=== PATIENT | female | born 1950 | race Caucasian/White ===

== ENCOUNTER → 2018-03-09 | Outpatient (CLI) | payer MEDICARE ==
--- NOTE | 2018-03-09 16:14 | WOMENS IMAGING REPORT ---
EXAM DESCRIPTION: 3D SCREENING MAMMO BILAT COMPLETED DATE/TIME: 03/09/2018 10:53 am REASON FOR STUDY: SCREENING MAMMO Z12.31 ENCNTR SCREEN MAMMOGRAM FOR MALIGNANT NEOPLASM OF NAIF COMPARISON: None. TECHNIQUE: Standard craniocaudal and mediolateral oblique views of each breast recorded using digita l acquisition and breast tomosynthesis. LIMITATIONS: None. FINDINGS: No masses, calcifications or architectural distortion. No areas of suspicion. Read with the assistance of CAD. .[facility] - R2 Cenova Version 1.3 .[facility] - R2 Cenova Version 1.3 .[facility] - R2 Cenova Version 2.4 .[facility] [place] R2 Cenova Version 2.4 .[facility] - R2 [employer] Make[employer] Artist Version 9.2 IMPRESSION: NORMAL MAMMOGRAM. BIRADS 1. BREAST DENSITY: a. The breasts are almost entirely fatty. BIRAD: 1 NEGATIVE RECOMMENDATION: ROUTINE SCREENING COMMENT: The patient has been notified of the results by letter per MQSA requirements. Additional no tification policies are in place for contacting patient with suspicious or incomplete findings. Quality ID #[id number]: The [employer] recommends an annual screening mammogram for women aged 40 years or over. This facility utilizes a reminder system to ensure that all patients receive reminder letters, and/or direct phone calls for appointments. This includes reminders for routine scr eening mammograms, diagnostic mammograms, or other Breast Imaging Interventions when appropriate. Th is patient will be placed in the appropriate reminder system. The [employer] (ACR) has developed recommendations for screening MRI of the breast s in certain patient populations, to be used in conjunction with mammography. Breast MRI surveillanc e may be appropriate for women with more than 20% lifetime risk of developing breast cancer as deter mined by genetic testing, significant family history of the disease, or history of mantle radiation f or Hodgkins Disease. ACR Practice Guidelines 2008. DBT Technology DBT is a type of tomographic mammography. With conventional mammography, overlapping breast tissue ma y make lesions difficult to detect, even with good compression. DBT uses an x-ray tube that rotates a round the breast, taking images at different angles. These images are then combined to create thin sl ices of the breast that the radiologist can view as a 3D reconstruction. The DEMANDIT unit can perform full-field digital mammograms (2D imaging); or DBT (3D imaging); or both, in a combination mode that quickly performs both the mammogram and the tomosynthesis scan while the breast is still compressed. PQRS 6045F: Fluoroscopic imaging is not utilized for breast tomosynthesis. TECHNICAL DOCUMENTATION: FINDING NUMBER: (1) ASSESSMENT: (1) JOB ID: [id number] [employer]- All Rights Reserved Reading location - IP/workstation name: [email or web address]
== END ==
LOC: WI 09:29
PROVIDERS: ATTEND Physician Assistant
DX: Z12.31 Encounter for screening mammogram for malignant neoplasm of breast (principal)
CPT/HCPCS: 77063; 77067

== ENCOUNTER 2018-05-26 23:32 | Emergency (ER) | payer MEDICARE, OTHER ==
[2018-05-26 23:51] VITALS: BP 122/54
[2018-05-27] MEDS ORDERED: METOCLOPRAMIDE HCL INJ/PF 10 MG/2 ML SDV IV ONE (00:10)
[2018-05-27] MEDS ORDERED: NORMAL SALINE 500 ML IV ONE (00:10)
[2018-05-27] MEDS ORDERED: HYDROMORPHONE HCL INJ/PF 2 MG/ML AMPULE IV ONE (00:10)
[2018-05-27 00:40] LABS: ABSOLUTE BASOPHILS # (AUTO) 0.1 10^3/uL (0.0-0.2); ABSOLUTE EOSINOPHILS # (AUTO) 0.1 10^3/uL (0.0-0.6); ABSOLUTE LYMPHOCYTES (AUTO) 2.4 10^3/uL (0.5-4.7); ABSOLUTE MONOCYTES (AUTO) 0.8 10^3/uL (0.1-1.4); ABSOLUTE NEUT (AUTO) 10.6 10^3/uL (1.7-8.2); BASOPHILS % (AUTO) 0.6 % (0-2); HEMATOCRIT 39.8 % (36.0-47.0); HEMOGLOBIN 13.1 g/dL (12.0-15.5); LYMPHOCYTES % (AUTO) 16.9 % (13-45); MEAN CORPUSCULAR HEMOGLOBIN 30.2 pg (27.0-33.4); MEAN CORPUSCULAR VOLUME 92 fl (80-97); MONOCYTES % (AUTO) 5.8 % (3-13); PLATELET COUNT 378 10^3/uL (150-450); RED BLOOD COUNT 4.34 10^6/uL (3.72-5.28); RED CELL DISTRIBUTION WIDTH 13.5 % (11.5-14.0); SEGMENTED NEUTROPHILS % (AUTO) 75.7 % (42-78); TOTAL CELLS COUNTED % (AUTO) 100 %; WHITE BLOOD COUNT 13.9 10^3/uL (4.0-10.5)
[2018-05-27 00:49] LABS: ANION GAP 11 (5-19); BLOOD UREA NITROGEN 20 mg/dL (7-20); CALCIUM 9.3 mg/dL (8.4-10.2); CARBON DIOXIDE 32 mmol/L (22-30); CHLORIDE 101 mmol/L (98-107); GLUCOSE 157 mg/dL (75-110); POTASSIUM 3.9 mmol/L (3.6-5.0); SODIUM 144.3 mmol/L (137-145)
[2018-05-27 02:17] LABS: APPEARANCE,URINE CLEAR; BILIRUBIN,URINE NEGATIVE (NEGATIVE); COLOR,URINE YELLOW; GLUCOSE, URINE NEGATIVE (NEGATIVE); KETONES,URINE NEGATIVE (NEGATIVE); LEUKOCYTE ESTERASE,URINE NEGATIVE (NEGATIVE); NITRITE,URINE NEGATIVE (NEGATIVE); PROTEIN,URINE 30 mg/dL (NEGATIVE); URINE SPECIFIC GRAVITY 1.023
--- NOTE | 2018-05-27 03:18 | RADIOLOGY REPORT (SQ) ---
EXAM DESCRIPTION: CT ABDOMEN WITHOUT IV CONTRAST COMPLETED DATE/TME: 05/27/2018 02:45 CLINICAL HISTORY: 68 years Female, left flank pain Comparison: None. Technique: No contrast. Coronal and sagittal reformat. This exam was performed according to our departmental dose-optimization program, which includes automated exposure control, adjustment of the mA and/or kV according to patient size and/or use of iterative reconstruction technique.[facility]: Dose Right [facility]: CareDose [facility]: Dose Right [facility]: Teradose 4D [facility]: Arista Power LIMITATIONS: None Findings: Cholecystectomy clips. 0.3 cm left distal ureteral stone at the L4-L5 disc level, mild left hydronephrosis/hydroureter, normal appendix. Moderate vacuum disc desiccation includes moderate bulge at the L4-L5 level, 0.3 cm degenerative L2 retrolisthesis, diffuse skeletal demineralization, and moderate bilateral sacroiliac osteoarthritis. Unenhanced lower thorax, abdominopelvic structures, and musculoskeleton appear otherwise grossly unremarkable. Impression: 0.3 cm left distal ureteral stone with low-grade obstruction.
[2018-05-27] MEDS ORDERED: KETOROLAC TROMETHAMINE INJ/PF 30 MG/1 ML SDV IV ONE (03:42)
[2018-05-27] MEDS ORDERED: HYDROCODONE/ACETAMINOPHEN 5-325 MG (6 TAB/ER DISP) PO PRN (04:33)
[2018-05-27] MEDS ORDERED: ONDANSETRON ODT 4 MG TAB (6 TAB/ER DISP) PO PRN (04:33)
--- NOTE | 2018-05-27 04:36 | ER Document Report ---
ED General - General Chief Complaint: Urinary Retention Stated Complaint: VOMITING Time Seen by Provider: 05/27/18 00:03 Notes: She is a 68-year-old female presents with complaint of left back pain rating around left flank and left lower quadrant abdomen. She says the pain started a few days ago. Then went away for 2 days and return tonight severe. She did see her doctor and had a CT scan but she never got the results of the CT scan. She denies any fevers. She started having vomiting today. No dysuria. No other complaints at this time. No previous history of kidney stones. TRAVEL OUTSIDE OF THE [place] IN LAST 30 DAYS: No - Related Data Allergies/Adverse Reactions: No Known Allergies Allergy (Unverified 05/26/18 23:36) Past Medical History - Social History Smoking Status: Unknown if Ever Smoked Frequency of alcohol use: None Drug Abuse: None Family History: Reviewed & Not Pertinent Patient has suicidal ideation: No Patient has homicidal ideation: No Renal/ Medical History: Denies: Hx Peritoneal Dialysis Review of Systems - Review of Systems Notes: My Normal Review Basic REVIEW OF SYSTEMS: CONSTITUTIONAL : Denies fever, chills, or sweats. Denies recent illness. RESPIRATORY: Denies cough, cold, or chest congestion. Denies shortness of breath, difficulty breathing, or wheezing. GASTROINTESTINAL: Left lower quadrant abdominal pain. Denies nausea, vomiting, or diarrhea. Denies constipation. Last BM: GENITOURINARY: Denies difficulty urinating, painful urination, burning, frequency, or blood in urine. MUSCULOSKELETAL: Left-sided back pain radiating around to the flank. SKIN: Denies rash or skin lesions. NEUROLOGICAL: Denies altered mental status or loss of consciousness. Denies headache. Denies weakness or paralysis or loss of use of either side. Denies problems with gait or speech. Denies sensory or motor loss. ALL OTHER SYSTEMS REVIEWED AND NEGATIVE. Physical Exam - Vital signs Vitals: Temp Pulse Resp BP Pulse Ox 98.4 F 51 L 18 122/54 L 97 05/26/18 23:50 05/26/18 23:50 05/26/18 23:50 05/26/18 23:50 05/26/18 23:50 - Notes Notes: General Appearance: Well nourished, alert, cooperative, no acute distress, alert to severe obvious discomfort. Vitals: reviewed, See vital signs table. Eyes: PERRL, EOMI, Conjuctiva clear Lungs: No wheezing, No rales, No rhonci, No accessory muscle use, good air exchange bilaterally. Heart: Normal rate, Regular rythm, No murmur, no rub Abdomen: Normal BS, soft, No rigidity, mild left lower quadrant abdominal tenderness to palpation, No guarding, no rebound, no abdominal masses, no organomegaly Back: Negative bilateral Pablito's sign. Extremities: strength 5/5 in all extremities, good pulses in all extremities, no swelling or tenderness in the extremities, no edema. Skin: warm, dry, appropriate color, no rash Neuro: speech clear, oriented x 3, normal affect, responds appropriately to questions. Course - Re-evaluation Re-evalutation: 05/27/18 06:23 CT scan does show evidence 3 mm stone in distal left ureter. She does not have any signs of infection on urinalysis. She looks well and feels improved after receiving Dilaudid. She did have some pain returning some hours later and therefore gave her a dose of Toradol which again relieved her pain. We will discharge home with Toradol as well as Zofran. I encouraged her return to ER immediately if she has fevers, intractable pain, intractable vomiting, or if she feels unwell. Patient agrees with plan will be discharged home. Dictation of this chart was performed using voice recognition software; therefore, there may be some unintended grammatical errors. - Vital Signs Vital signs: Temp Pulse Resp BP Pulse Ox 98.4 F 51 L 18 122/54 L 97 05/26/18 23:50 05/26/18 23:50 05/26/18 23:50 05/26/18 23:50 05/26/18 23:50 - Laboratory Result Diagrams: 05/27/18 00:27 05/27/18 00:27 Laboratory results interpreted by me: 05/27/18 05/27/18 05/27/18 00:27 00:27 01:44 WBC 13.9 H Absolute Neutrophils 10.6 H Carbon Dioxide 32 H Est GFR (Non-Af Amer) 57 L Glucose 157 H Urine Protein 30 H Urine Blood LARGE H Urine Urobilinogen 2.0 H Discharge - Discharge Clinical Impression: Kidney stone on left side Condition: Good Disposition: HOME, SELF-CARE Additional Instructions: KIDNEY STONE: You are passing or have passed a kidney stone. These stones are usually due to increased calcium or uric acid concentrations in your urine. Stones within the kidney itself are not painful. The pain occurs as the stone leaves the kidney to pass down the long tube, called the ureter, leading to the bladder. If the stone is small, it will usually pass by itself. Most patients can pass the stone at home. You will usually receive medications for pain, nausea or vomiting, and sometimes a medication to assist in passing the kidney stone. However, if the pain is very severe or if vomiting prevents you from taking oral pain medications, you may need to return for further treatment. Drink three or four quarts of fluids per day. You will be given pain medication (if needed) and urine strainers. Strain all your urine to see if the stone passes. If your doctor has asked you to bring the stone in for analysis, return with the stone once it has passed. Return if pain or vomiting become severe, if you develop a high fever, if you are unable to pass your urine, or if other unusual symptoms occur. TORADOL INJECTION: You have been given an injection of ketorolac tromethamine (Toradol). This is an excellent, safe drug for pain control. It also has potent antiinflammatory action. You should have significant pain relief within about one hour. Toradol is not addicting and is non-sedating. It does not interfere with driving or work. Call or return if you develop itching, hives, shortness of breath, or rash. PAIN MEDICATION INJECTION: You have received an injection of a pain medication. You should experience significant pain relief within 45 minutes. This drug is a narcotic - - it will impair your judgement, slow your reaction time and make you sleepy ( as well as relieve your pain). Narcotics also can cause nausea. You should not drive, work with machinery, or perform any task requiring mental alertness until all effects of the medication are gone -- six to eight hours. Do not take any alcohol, or sedatives, and do not take any other medication without checking with your physician. ANTINAUSEA MEDICATION: You have been given a medication to suppress nausea and vomiting. This type of medication can be given as a shot, pill, or suppository. It will usually last for many hours. Pills and shots usually last six to eight hours, suppositories last about 12 hours. For the typical illness, only one or two doses of the medication may be necessary. Mild lightheadedness may occur. This type of medicine can cause drowsiness. Do not drive or operate dangerous machinery while under its influence. Do not mix with alcohol. See your doctor at once if you have muscle spasms or tightness, or uncontrollable motions (particularly of the neck, mouth, or jaw). Persistent vomiting or severe lightheadedness should also be evaluated by the physician. ORAL NARCOTIC MEDICATION: You have been given a prescription for pain control. This medication is a narcotic. It's best taken with food, as nausea can result if taken on an empty stomach. Don't operate machinery or drive within six hours of taking this medication. Do not combine this medicine with alcohol, or with any medication which can cause sedation (such as cold tablets or sleeping pills) unless you get permission from the physician. Narcotics tend to cause constipation. If possible, drink plenty of fluids and eat a diet high in fiber and fruits. Please be aware that prescription narcotics also have the potential for abuse. People become addicted to these medications because of the general sense of wellbeing that they induce. This feeling along with a significant reduction in tension, anxiety, and aggression provides a stimulating seductive quality to these drugs. Once your pain is under control, we encourage you to discard your unused narcotics. FOLLOW-UP CARE: If you have been referred to a physician for follow-up care, call the physician s office for an appointment as you were instructed or within the next two days. If you experience worsening or a significant change in your symptoms, notify the physician immediately or return to the Emergency Department at any time for re-evaluation. Please call the urologist on Wednesday to make a follow up appointment in regards to your kidney stone. please return to the ER immediately if you develop fevers , intractable pain, recurrent vomiting, or feel unwell. Prescriptions: Ketorolac Tromethamine [Toradol 10 mg Tablet] 10 mg PO Q8HP PRN #12 tablet PRN Reason: Ondansetron [Zofran Odt 4 mg Tablet] 1 tab PO Q4H PRN #15 tab.rapdis PRN Reason: For Nausea/Vomiting Forms: Return to Work Referrals: GRZEGORZ SORIANO II, MD [[facility]] - 05/30/18
== END 2018-05-27 04:56 | disposition home or self-care (01) ==
LOC: ER 23:32
DX: N20.1 Calculus of ureter (principal); R39.198 Other difficulties with micturition; R11.10 Vomiting, unspecified; M54.9 Dorsalgia, unspecified; R10.32 Left lower quadrant pain; R10.9 Unspecified abdominal pain
CPT/HCPCS: 99284; 96361; 51701; 96374; 96375; 36415; 85025; 80048; 81001; 76380; J1885; J2765; J1170; J7040; A9270 ×2

== ENCOUNTER 2018-07-02 14:04 | Emergency (ER) | payer OTHER, MEDICARE ==
[2018-07-02] MEDS ORDERED: IBUPROFEN 600 MG TABLET PO ONE (14:36)
--- NOTE | 2018-07-02 14:48 | ER Document Report ---
ED General - General Chief Complaint: Ankle Injury Stated Complaint: FALL/RIGHT ANKLE INJURY Time Seen by Provider: 07/02/18 14:27 Mode of Arrival: Ambulatory Information source: Patient TRAVEL OUTSIDE OF THE [place] IN LAST 30 DAYS: No - HPI Notes: Report that the patient was at work and suffered inversion injury to the R ankle and foot at 0830 this morning. Pt denies knee or hip pain. NO numbness or paresthesia or other injury. Pain and swelling progressed since the injury. No neck pain or back pain or head injury. - Related Data Allergies/Adverse Reactions: No Known Allergies Allergy (Verified 07/02/18 14:04) Past Medical History - General Information source: Patient - Social History Smoking Status: Never Smoker Frequency of alcohol use: None Drug Abuse: None Lives with: Family Family History: Reviewed & Not Pertinent Renal/ Medical History: Denies: Hx Peritoneal Dialysis Review of Systems - Review of Systems -: Yes All other systems reviewed and negative Physical Exam - Vital signs Vitals: Temp Pulse Resp BP Pulse Ox 98.1 F 60 16 112/82 99 07/02/18 14:08 07/02/18 14:08 07/02/18 14:08 07/02/18 14:08 07/02/18 14:08 - Notes Notes: Examination of the patient's right lower extremity shows a nonfocal hip and knee exam, patient has pain along the lateral malleolus and the lateral aspect of the foot. No bony deformity or crepitance. No proximal erythema or adenopathy. Distally, the patient has good sensation and capillary refill and pulses. Course - Re-evaluation Re-evalutation: 07/02/18 14:48 Patient was given ibuprofen. 07/02/18 15:53 Patient states she has a walker at home. Patient was given a ankle stirrup splint and a Se wrap to the right ankle. - Vital Signs Vital signs: Temp Pulse Resp BP Pulse Ox 98.1 F 60 16 112/82 99 07/02/18 14:08 07/02/18 14:08 07/02/18 14:08 07/02/18 14:08 07/02/18 14:08 Discharge - Discharge Clinical Impression: Ankle sprain Qualifiers: Encounter type: initial encounter Involved ligament of ankle: other ligament Laterality: right Qualified Code(s): S93.491A - Sprain of other ligament of right ankle, initial encounter Foot sprain Qualifiers: Encounter type: initial encounter Laterality: right Qualified Code(s): S93.601A - Unspecified sprain of right foot, initial encounter Condition: Stable Disposition: HOME, SELF-CARE Instructions: Se Wrap ([facility]), Sprained Ankle ([facility]), Ice & Elevation ([facility]), Ankle Stirrup Splint ([facility]) Additional Instructions: Follow-up with orthopedics if pain and swelling or not improved within 2 weeks. Continue taking your ibuprofen 800 mg every 8 hours as needed for pain. Ice and elevate. Use a walker or a crutch or cane as needed for any pain. Forms: Return to Work Referrals: LANA HAJI PA-C [Primary Care Provider] - Follow up as needed MAGALYS MARTINEZ DO [ACTIVE STAFF] - Follow up as needed
--- NOTE | 2018-07-02 15:34 | RADIOLOGY REPORT (SQ) ---
EXAM DESCRIPTION: FOOT RIGHT COMPLETE COMPLETED DATE/TIME: 07/02/2018 3:25 pm REASON FOR STUDY: R lateral malleolus ankle pain COMPARISON: None. NUMBER OF VIEWS: Three views. TECHNIQUE: AP, lateral and oblique radiographic images acquired of the right foot. LIMITATIONS: None. FINDINGS: MINERALIZATION: Osteopenia. BONES: No acute fracture or dislocation. No worrisome bone lesions. JOINTS: No effusions. SOFT TISSUES: No soft tissue swelling. No foreign body. OTHER: No other significant finding. IMPRESSION: Osteopenia. No evidence of acute osseous injury. TECHNICAL DOCUMENTATION: JOB ID: [id number] [employer]- All Rights Reserved Reading location - IP/workstation name: [email or web address]
--- NOTE | 2018-07-02 15:36 | RADIOLOGY REPORT (SQ) ---
EXAM DESCRIPTION: ANKLE RIGHT COMPLETE COMPLETED DATE/TIME: 07/02/2018 3:26 pm REASON FOR STUDY: R lateral malleolus ankle and lateral foot pain COMPARISON: None. NUMBER OF VIEWS: Three views. TECHNIQUE: AP, lateral, and oblique radiographic images acquired of the right ankle. LIMITATIONS: None. FINDINGS: MINERALIZATION: Osteopenia. BONES: No acute fracture or dislocation. No worrisome bone lesions. JOINTS: No effusions. SOFT TISSUES: No soft tissue swelling. No foreign body. OTHER: No other significant finding. IMPRESSION: Osteopenia. No evidence of acute osseous injury. TECHNICAL DOCUMENTATION: JOB ID: [id number] [employer]- All Rights Reserved Reading location - IP/workstation name: [email or web address]
[2018-07-02 16:16] VITALS: BP 109/64
== END 2018-07-02 16:16 | disposition home or self-care (01) ==
LOC: ER 14:04
DX: S93.601A Unspecified sprain of right foot, initial encounter (principal); S93.491A Sprain of other ligament of right ankle, initial encounter; X50.0XXA Overexertion from strenuous movement or load, initial encounter; Y99.0 Civilian activity done for income or pay
CPT/HCPCS: 99283; 73610; 73630; L1902